=== PATIENT | male | born 1985 | race American Indian/Alaskan Native ===

== ENCOUNTER 2017-04-27 19:13 | Emergency (ER) | payer SELFPAY ==
--- NOTE | 2017-04-27 19:38 | C.PDOC ---
History Of Present Illness 31 yo male w/o significant PMHx come in for evaluation of pain on urination, urinary frequency, hesitancy developed for past 3 days, (+) chills. Pt admits, had similar sx in past ( 2 yrs ago) when was diagnosed with UTI. Otherwise, pt denies fever, headache, sore throat, neck pain, CP, SOB, dyspnea, abd. pain, N/V , back pain, hematuria, denies penile discharge, testicular swelling or pain, denies penile lesions. Ambulate to Ed for evaluation, not in any apparent distress. Time Seen by Provider: 04/27/17 19:24 Chief Complaint (Nursing): Male Genitourinary History Per: Patient Past Medical History Reviewed: Historical Data, Vital Signs Vital Signs: Last Vital Signs Temp 98.3 F 04/27/17 19:18 Pulse 82 04/27/17 19:18 Resp 16 04/27/17 19:18 BP 108/66 04/27/17 19:18 Pulse Ox 99 04/27/17 19:40 - Medical History PMH: No Chronic Diseases Surgical History: No Surg Hx Family History: States: No Known Family Hx - Social History Hx Tobacco Use: No Hx Alcohol Use: Yes Hx Substance Use: No - Immunization History Hx Tetanus Toxoid Vaccination: No Hx Influenza Vaccination: No Hx Pneumococcal Vaccination: No Review Of Systems Except As Marked, All Systems Reviewed And Found Negative. Constitutional: Positive for: Chills. Negative for: Fever Eyes: Negative for: Vision Change ENT: Negative for: Mouth Swelling, Throat Pain, Throat Swelling Cardiovascular: Negative for: Chest Pain Respiratory: Negative for: Cough, Shortness of Breath Gastrointestinal: Negative for: Nausea, Vomiting, Abdominal Pain, Diarrhea Genitourinary: Positive for: Dysuria, Frequency. Negative for: Incontinence, Hematuria, Penile Discharge, Scrotal Pain, Rash, Penile Pain Musculoskeletal: Negative for: Back Pain Skin: Negative for: Rash Neurological: Negative for: Weakness, Numbness, Altered Mental Status, Headache , Dizziness Physical Exam - Physical Exam Appears: Well, Non-toxic, No Acute Distress Skin: Normal Color, Warm, Dry, No Rash Eye(s): bilateral: PERRL Nose: No Flaring Oral Mucosa: Moist, No Drooling Tongue: Normal Appearing Lips: Normal Appearing Throat: No Erythema, No Exudate, No Drooling Neck: Supple Cardiovascular: Rhythm Regular Respiratory: No Decreased Breath Sounds, No Accessory Muscle Use, No Stridor, No Wheezing Gastrointestinal/Abdominal: Soft, Tenderness (mild suprapubic tenderness), No Distention, No Guarding Back: No CVA Tenderness Male Genital: Normal Inspection, No Testicular Tenderness, No Testicular Swelling, Other (performed by ) Extremity: No Pedal Edema Neurological/Psych: Oriented x3, Normal Speech ED Course And Treatment - Laboratory Results Result Diagrams: 04/27/17 20:34 04/27/17 20:34 Lab Interpretation: Normal O2 Sat by Pulse Oximetry: 99 Pulse Ox Interpretation: Normal - CT Scan/US CT abd/pelvis Other Rad Studies (CT/US): Radiology Report Reviewed CT/US Interpretation: No evidence for bowel herniation or obstruction, colitis, appendictis or diverticulitis. No ureteral stones or obstructive uropathy. Progress Note: On re-eval, pt is afebrile, hemodynamicaly stable. Non-toxic. ENT: no acute findings. Lungs: CTA B/L, BS equal B/L. Abd: benign, (-) guarding, (-) rebound, (-) localized tenderness, (-) RLQ tenderness. back: (-) CVAtenderness. Diagnostics and imaging review (-) acute abnormalities. results review and discussed with pt. Pt request STD prophy tx, admits, had recent unprotective sexual activity. Pt has clinical findings c/w dysuria, urethritis. Pt advised and ref. to f/u with PMD, urology in 2-3 days for re- eavl. reutrn if any new changes. Disposition Counseled Patient/Family Regarding: Studies Performed, Diagnosis, Need For Followup, Rx Given - Disposition Referrals: Brendon Irizarry MD [Staff Provider] - [facility] at [facility] [Outside] Disposition: HOME/ ROUTINE Disposition Time: 22:02 Condition: STABLE Additional Instructions: Follow up with PMD, Urology n 2-3 days for re-evaluation. Return to ED if any worsening or new changes Instructions: Dysuria (ED) - Clinical Impression Clinical Impression: Dysuria, Urethritis
[2017-04-27 19:43] LABS: URINE BILIRUBIN NEGATIVE (NEGATIVE); URINE BLOOD NEGATIVE (NEGATIVE); URINE CLARITY Clear (Clear); URINE COLOR Straw (YELLOW); URINE GLUCOSE (UA) NORMAL (Normal); URINE LEUKOCYTE ESTERASE NEG Leu/uL (Negative); URINE NITRATE NEGATIVE (NEGATIVE); URINE PROTEIN NEGATIVE (NEGATIVE); URINE UROBILINOGEN NORMAL mg/dL (0.2-1.0)
[2017-04-27 20:41] LABS: BASO % 0.9 % (0.0-2.0); EOS # 0.1 K/uL (0.0-0.7); EOS % 1.5 % (0.0-4.0); HEMOGLOBIN 13.6 g/dL (12.0-18.0); LYMPH # 2.2 K/uL (1.0-4.3); LYMPH % 41.6 % (20.0-40.0); MEAN CELL VOLUME 73.2 fL (80.0-94.0); MEAN CORPUSCULAR HEMOGLOBIN 23.4 pg (27.0-31.0); MEAN CORPUSCULAR HGB CONC 31.9 g/dL (33.0-37.0); MEAN PLATELET VOLUME 8.7 fL (7.2-11.7); MONO # 0.5 K/uL (0.0-0.8); MONO % 8.8 % (0.0-10.0); NEUT # 2.5 K/uL (1.8-7.0); NEUT % 47.2 % (50.0-75.0); NRBC % 0.1 % (0.0-2.0); RBC 5.83 Mil/uL (4.40-5.90); RED CELL DISTRIBUTION WIDTH 14.6 % (11.5-14.5); WHITE BLOOD COUNT 5.3 K/uL (4.8-10.8)
[2017-04-27 20:49] LABS: BLOOD UREA NITROGEN 12 mg/dL (9-20); GFR AFRICAN-AMERICAN > 60; GFR NON-AFRICAN AMERICAN > 60
[2017-04-27 20:50] LABS: CALCIUM 9.2 mg/dl (8.6-10.4)
[2017-04-27] MEDS ORDERED: Iohexol 300 100 ML IJ ONE (21:14)
[2017-04-27] MEDS ORDERED: cefTRIAXone (Rocephin) 250 mg Inj IM STA (22:03)
[2017-04-27 22:22] VITALS: BP 122/78; PULSE 100; RESP 20; TEMP 98; O2SAT 100
--- NOTE | 2017-04-28 07:44 | CT ---
PROCEDURE: CT Abdomen and Pelvis with contrast HISTORY: RLQ pain COMPARISON: None available TECHNIQUE: Contrast dose: 100 mL Omnipaque 300 Radiation dose: Total exam DLP = 357.39 mGy-cm. This CT exam was performed using one or more of the following dose reduction techniques: Automated exposure control, adjustment of the mA and/or kV according to patient size, and/or use of iterative reconstruction technique. FINDINGS: LOWER THORAX: No visible consolidation, pleural effusion, or pneumothorax. Small hiatal hernia. LIVER: Unremarkable. GALLBLADDER AND BILE DUCTS: Contracted gallbladder limits evaluation. PANCREAS: Unremarkable. SPLEEN: Two probable splenules. Otherwise unremarkable. ADRENALS: Unremarkable. KIDNEYS AND URETERS: The kidneys enhance symmetrically. No hydronephrosis or obstructing calculus identified. VASCULATURE: No aortic aneurysm. BOWEL: Stomach is nondistended. Lack of oral contrast limits evaluation for bowel pathology. Bowel loops appear within normal limits of caliber without evidence of obstruction. Mild constipation. APPENDIX: The presumed appendix appears within normal limits of caliber. No secondary signs of acute appendicitis. PERITONEUM: No significant free fluid. No definite free air. LYMPH NODES: No bulky adenopathy. BLADDER: Unremarkable. REPRODUCTIVE: The prostate gland measures approximately 3.9 x 4.5 cm. BONES: No acute osseous abnormality is detected. OTHER FINDINGS: None. IMPRESSION: Mild constipation. Additional findings above. Preliminary impression was provided by virtual radiologic.
== END 2017-04-27 22:46 | disposition home or self-care (01) ==
LOC: C.ER 19:13
DX: N34.2 Other urethritis (principal)
CPT/HCPCS: 74177; 80048; 81001; 82948; 85025; 96372; 99285; J0696; Q9967

== ENCOUNTER 2017-07-07 18:36 | Emergency (ER) | payer OTHER ==
[2017-07-07 19:02] VITALS: O2SAT 100
--- NOTE | 2017-07-07 20:04 | C.PDOC ---
History Of Present Illness pt presents with burning sensation while voiding and questionable discharge. Pt states he had unprotected intercourse Time Seen by Provider: 07/07/17 20:03 Chief Complaint (Nursing): Male Genitourinary History Per: Patient Onset/Duration Of Symptoms: Days Current Symptoms Are (Timing): Still Present Severity: Moderate Pain Scale Rating Of: 3 Quality Of Discomfort: Burning Associated Symptoms: denies: Fever, Chills, Nausea, Vomiting Alleviating Factors: None Recent travel outside of the [place]: No Additional History Per: Patient Past Medical History Reviewed: Historical Data, Nursing Documentation, Vital Signs Vital Signs: Last Vital Signs Temp 98.2 F 07/07/17 18:58 Pulse 75 07/07/17 18:58 Resp 16 07/07/17 18:58 BP 117/70 07/07/17 18:58 Pulse Ox 100 07/07/17 20:04 Family History: States: No Known Family Hx - Social History Hx Tobacco Use: No Hx Alcohol Use: Yes Hx Substance Use: No - Immunization History Hx Tetanus Toxoid Vaccination: No Hx Influenza Vaccination: No Hx Pneumococcal Vaccination: No Review Of Systems Constitutional: Negative for: Fever, Chills Genitourinary: Positive for: Dysuria, Penile Discharge. Negative for: Penile Pain Skin: Negative for: Rash, Lesions Neurological: Negative for: Weakness Psych: Negative for: Anxiety Physical Exam - Physical Exam Appears: Non-toxic, No Acute Distress Skin: Warm, Diaphoretic Male Genital: No Testicular Tenderness, No Testicular Swelling, No Inguinal Tenderness, No Inguinal Swelling, No Scrotal Swelling Extremity: Bilateral: Atraumatic Neurological/Psych: Oriented x3 Gait: Steady ED Course And Treatment O2 Sat by Pulse Oximetry: 100 Pulse Ox Interpretation: Normal Disposition Counseled Patient/Family Regarding: Studies Performed, Diagnosis, Need For Followup - Disposition Referrals: [facility] [Outside] [facility] [Outside] Disposition: HOME/ ROUTINE Disposition Time: 20:04 Condition: FAIR Instructions: Sexually Transmitted Diseases (ED), Condom Use (ED) Forms: [facility] (Uzbek) - Clinical Impression Clinical Impression: Urethritis, STD (male)
[2017-07-07] MEDS ORDERED: cefTRIAXone (Rocephin) 250 mg Inj IM STA (20:16)
[2017-07-07 21:03] VITALS: BP 134/80; PULSE 62; RESP 18; TEMP 98.3
== END 2017-07-07 21:15 | disposition home or self-care (01) ==
LOC: C.ER 18:36
DX: N34.2 Other urethritis (principal); A64 Unspecified sexually transmitted disease
CPT/HCPCS: 96372; 99285; J0696

== ENCOUNTER 2017-07-16 15:49 | Emergency (ER) | payer MEDICAID, OTHER ==
[2017-07-16 15:54] VITALS: BMI 25.5
[2017-07-16 15:55] VITALS: RESP 18; O2SAT 99
[2017-07-16 17:21] LABS: RBC URINE 1 /hpf (0-3); URINE BILIRUBIN NEGATIVE (NEGATIVE); URINE BLOOD NEGATIVE (NEGATIVE); URINE COLOR Yellow (YELLOW); URINE GLUCOSE (UA) NORMAL (Normal); URINE KETONE NEGATIVE (NEGATIVE); URINE LEUKOCYTE ESTERASE NEG Leu/uL (Negative); URINE PROTEIN NEGATIVE (NEGATIVE)
--- NOTE | 2017-07-16 17:43 | C.PDOC ---
History Of Present Illness 31 yo male c/o dysuria and suprapubic pressure for two weeks. PT notes he has had these symptoms intermittently for many years. Notes he was evaluated by urology years ago and "every thing was fine." He was evaluated by [facility] two weeks ago when symptoms started, treated with Rocephin and ZIthromax but the symptoms persist. Pt notes he had unprotected intercourse before these symptoms started but has not had intercourse since. No penile discharge, abdominal pain, n/v, testicular pain, or fever. Time Seen by Provider: 07/16/17 16:10 Chief Complaint (Nursing): Abdominal Pain History Per: Patient History/Exam Limitations: no limitations Onset/Duration Of Symptoms: Days Current Symptoms Are (Timing): Still Present Past Medical History Vital Signs: Last Vital Signs Temp 98.1 F 07/16/17 17:51 Pulse 74 07/16/17 17:51 Resp 18 07/16/17 15:54 BP 118/74 07/16/17 17:51 Pulse Ox 99 07/16/17 17:51 Family History: States: Unknown Family Hx - Social History Hx Tobacco Use: No Hx Alcohol Use: Yes Hx Substance Use: No - Immunization History Hx Tetanus Toxoid Vaccination: (unk) Hx Influenza Vaccination: No Hx Pneumococcal Vaccination: (unk) Review Of Systems Except As Marked, All Systems Reviewed And Found Negative. Constitutional: Negative for: Fever Genitourinary: Positive for: Dysuria. Negative for: Frequency, Penile Discharge , Scrotal Pain Physical Exam - Physical Exam Appears: Well, Non-toxic, No Acute Distress Skin: Normal Color, Warm, Dry Head: Atraumatic, Normacephalic Eye(s): bilateral: Normal Inspection, EOMI Nose: Normal Oral Mucosa: Moist Neck: Normal, Normal ROM, Supple Chest: Symmetrical Cardiovascular: Rhythm Regular Respiratory: Normal Breath Sounds Gastrointestinal/Abdominal: Normal Exam, Soft, No Tenderness Back: Normal Inspection Male Genital: Normal Inspection, No Testicular Tenderness, No Testicular Swelling, No Scrotal Swelling, Circumcised Extremity: Normal ROM Extremity: Bilateral: Atraumatic Neurological/Psych: Oriented x3, Normal Speech ED Course And Treatment O2 Sat by Pulse Oximetry: 99 Progress Note: Cultures ordered. Pt was instructed to followup with urology in 1-2 days. Case discussed with Dr Guadalupe, agreed upon plan and discharge. Disposition - Disposition Referrals: Niels Thomason MD [Staff Provider] - Disposition: HOME/ ROUTINE Disposition Time: 17:40 Condition: STABLE Additional Instructions: Follow up with the clinic in 2-5 days for further evaluation. Take medications as prescribed. Return to the emergency department at any time if symptoms persist or worsen. You may call critical access hospital service for any assistance [phone]. Prescriptions: Doxycycline Hyclate [Doryx] 100 mg PO BID #14 cap Instructions: Dysuria (ED) Forms: [employer] (Bulgarian) - Clinical Impression Clinical Impression: Urethritis, Dysuria
[2017-07-16 17:53] VITALS: BP 118/74; PULSE 74; TEMP 98.1
== END 2017-07-16 17:55 | disposition home or self-care (01) ==
LOC: C.ER 15:49
DX: N34.2 Other urethritis (principal); R30.0 Dysuria

== ENCOUNTER 2017-11-09 09:31 | Emergency (ER) | payer OTHER ==
[2017-11-09 09:51] VITALS: RESP 18; TEMP 98.4; O2SAT 99; BMI 26.3
--- NOTE | 2017-11-09 10:29 | RAD ---
PROCEDURE: Left Ankle Radiographs. HISTORY: left ankle pain COMPARISON: None FINDINGS: BONES: Probable healing oblique distal fibular fracture above the level of the plafond. No gross callus. No soft tissue swelling. No other fracture identified. JOINTS: Normal. No osteoarthritis. Ankle mortise maintained. Talar dome intact SOFT TISSUES: Normal. OTHER FINDINGS: None. IMPRESSION: Suspect healing fracture distal fibula. No soft tissue swelling to suggest acute fracture. Correlate clinically.
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
[2017-11-09 11:44] VITALS: BP 125/81; PULSE 69
== END 2017-11-09 11:43 | disposition home or self-care (01) ==
LOC: C.ER 09:31
DX: S82.832A Other fracture of upper and lower end of left fibula, initial encounter for closed fracture (principal); W19.XXXA Unspecified fall, initial encounter
CPT/HCPCS: 73610; 97116; 97161; 99285; G8978; G8979; G8980

== ENCOUNTER 2017-12-30 15:36 | Emergency (ER) | payer OTHER ==
[2017-12-30 15:36] VITALS: BMI 26.3
[2017-12-30 15:46] VITALS: O2SAT 100
[2017-12-30] MEDS ORDERED: Sodium Chloride 0.9% 1,000 ML IV ONE (16:05)
--- NOTE | 2017-12-30 16:10 | C.PDOC ---
History Of Present Illness 32 year old male presents to the ED complaining of left-sided abdominal pain and urinary frequency, intermittent for the past 2 weeks. Symptoms associated with nausea and diarrhea. No vomiting, fever, or chills. Denies any penile discharge or testicular pain. Patient has had the same problem intermittently with self resolution. He never followed up with a urologist due to insurance problems. Time Seen by Provider: 12/30/17 15:54 Chief Complaint (Nursing): Abdominal Pain History Per: Patient History/Exam Limitations: no limitations Onset/Duration Of Symptoms: Days (x 2 weeks) Current Symptoms Are (Timing): Still Present Associated Symptoms: Nausea, Diarrhea Past Medical History Reviewed: Historical Data, Nursing Documentation, Vital Signs Vital Signs: Last Vital Signs Temp 98 F 12/30/17 19:51 Pulse 62 12/30/17 19:51 Resp 20 12/30/17 19:51 BP 112/75 12/30/17 19:51 Pulse Ox 100 12/30/17 19:54 - Medical History PMH: No Chronic Diseases Surgical History: No Surg Hx Family History: States: Unknown Family Hx - Social History Hx Tobacco Use: No Hx Alcohol Use: Yes Hx Substance Use: No - Immunization History Hx Tetanus Toxoid Vaccination: (unk) Hx Influenza Vaccination: No Hx Pneumococcal Vaccination: (unk) Review Of Systems Except As Marked, All Systems Reviewed And Found Negative. Constitutional: Negative for: Fever, Chills Gastrointestinal: Positive for: Nausea, Abdominal Pain, Diarrhea. Negative for : Vomiting, Constipation Genitourinary: Positive for: Frequency. Negative for: Penile Discharge, Scrotal Pain, Rash Physical Exam - Physical Exam Appears: Well, Non-toxic, No Acute Distress Skin: Normal Color, Warm, Dry Head: Atraumatic, Normacephalic Eye(s): bilateral: Normal Inspection, EOMI Nose: Normal Oral Mucosa: Moist Neck: Normal ROM, Supple Chest: Symmetrical Cardiovascular: Rhythm Regular Respiratory: Normal Breath Sounds, No Accessory Muscle Use, Other (speaking in full sentences) Gastrointestinal/Abdominal: Soft, Tenderness (LLQ), No Guarding, No Rebound Back: Normal Inspection, No CVA Tenderness Extremity: Normal ROM Neurological/Psych: Oriented x3, Normal Speech, No Other (focal deficits) ED Course And Treatment - Laboratory Results Result Diagrams: 12/30/17 16:28 03/21/18 16:28 O2 Sat by Pulse Oximetry: 100 (RA) Pulse Ox Interpretation: Normal Progress Note: Ordered blood work and urinalysis. Patient started on IV fluids, Pepcid, and Toradol. On reevaluation pain persists. Will order CT abdomen/ pelvis. On re-evaluation, patient is resting comfortably, abdomen remains soft , and patient is tolerating PO. Afebrile. Instructed strict f/u with urologist and PMD in 1-2 days. Disposition - Disposition Referrals: Niels Thomason MD [Staff Provider] - [facility] [Outside] Disposition: HOME/ ROUTINE Disposition Time: 19:50 Condition: STABLE Additional Instructions: Follow up with your PMD and urologist in 1-2 days. Return to ER if symptoms persist or worsen. Instructions: Acute Abdomen (Belly Pain), Adult (DC) Forms: [email or web address] (Yi) - Clinical Impression Clinical Impression: Abdominal pain - PA / REVENUE ACCOUNTING MANAGER / Resident Statement MD/DO has reviewed & agrees with the documentation as recorded. - Scribe Statement The provider has reviewed the documentation as recorded by the Scribe (Henny Marvin) All medical record entries made by the Scribe were at my direction and personally dictated by me. I have reviewed the chart and agree that the record accurately reflects my personal performance of the history, physical exam, medical decision making, and the department course for this patient. I have also personally directed, reviewed, and agree with the discharge instructions and disposition.
[2017-12-30] MEDS ORDERED: Sodium Chloride 0.9% 1,000 ML ONE (16:21)
[2017-12-30 16:34] LABS: EOS # 0.1 K/uL (0.0-0.7); EOS % 2.8 % (0.0-4.0); HEMOGLOBIN 13.9 g/dL (12.0-18.0); LYMPH # 1.9 K/uL (1.0-4.3); LYMPH % 42.6 % (20.0-40.0); MEAN CORPUSCULAR HEMOGLOBIN 23.3 pg (27.0-31.0); MEAN CORPUSCULAR HGB CONC 31.8 g/dL (33.0-37.0); MEAN PLATELET VOLUME 9.6 fL (7.2-11.7); MONO # 0.4 K/uL (0.0-0.8); MONO % 8.6 % (0.0-10.0); RBC 5.99 Mil/uL (4.40-5.90); RED CELL DISTRIBUTION WIDTH 14.9 % (11.5-14.5); WHITE BLOOD COUNT 4.5 K/uL (4.8-10.8)
[2017-12-30 16:43] LABS: URINE BILIRUBIN NEGATIVE (NEGATIVE); URINE BLOOD NEGATIVE (NEGATIVE); URINE CLARITY Clear (Clear); URINE COLOR Yellow (YELLOW); URINE GLUCOSE (UA) NORMAL (Normal); URINE LEUKOCYTE ESTERASE NEG Leu/uL (Negative); URINE PROTEIN NEGATIVE (NEGATIVE); URINE UROBILINOGEN NORMAL mg/dL (0.2-1.0)
[2017-12-30 16:52] LABS: ALB/GLOB RATIO 1.1 (1.0-2.1); ALBUMIN 4.4 g/dL (3.5-5.0); ALT/SGPT 30 U/L (21-72); AST/SGOT 34 U/L (17-59); BLOOD UREA NITROGEN 15 mg/dL (9-20); GFR AFRICAN-AMERICAN > 60; GFR NON-AFRICAN AMERICAN > 60; LIPASE 122 U/L (23-300)
[2017-12-30] MEDS ORDERED: Iodixanol 320 MG/ML 100 ML BOTTLE IV ONE (17:38)
--- NOTE | 2017-12-30 17:45 | RAD ---
PROCEDURE: Radiographs of the chest and abdomen (obstructive series) HISTORY: pain COMPARISON: No prior. TECHNIQUE: AP radiograph of the chest, with upright and supine radiographs of the abdomen. FINDINGS: CHEST: Lungs: Clear. Cardiovascular: Normal size heart. No pulmonary vascular congestion. Pleura: No pleural fluid. No pneumothorax. Other findings: None. ABDOMEN AND PELVIS: Bowel: Unremarkable bowel gas pattern. No evidence of mechanical obstruction. Free air: None. Bones: Unremarkable. Other findings: None. IMPRESSION: Unremarkable radiographs of chest and abdomen. No evidence of mechanical bowel obstruction.
--- NOTE | 2017-12-30 19:48 | CT ---
EXAM: CT Abdomen and Pelvis With Intravenous Contrast EXAM DATE/TIME: Exam ordered 12/30/2017 5:30 PM CLINICAL HISTORY: 32 years old, male; Pain; Abdominal pain; Other: Abd pain TECHNIQUE: Axial computed tomography images of the abdomen and pelvis with intravenous contrast. All CT scans at this facility use one or more dose reduction techniques, viz.: automated exposure control; ma/kV adjustment per patient size (including targeted exams where dose is matched to indication; i.e. head); or iterative reconstruction technique. Coronal and sagittal reformatted images were created and reviewed. CONTRAST: 100 mL of visipaque administered intravenously. COMPARISON: CT - ABD PELVIS IV CONTRAST ONLY 2017-04-27 21:28 FINDINGS: Lower thorax: No acute findings. ABDOMEN: Liver: Unremarkable. No mass. Gallbladder and bile ducts: Unremarkable. No calcified stones. No ductal dilation. Pancreas: Unremarkable. No mass. No ductal dilation. Spleen: An 8mm accessory spleen is noted lateral to the inferior splenic margin. Adrenals: Unremarkable. No mass. Kidneys and ureters: A 9 mm cyst is seen in the upper pole the left kidney Stomach and bowel: Unremarkable. No obstruction. No mucosal thickening. Appendix: No findings to suggest acute appendicitis. PELVIS: Bladder: Unremarkable. No mass. Reproductive: Unremarkable as visualized. ABDOMEN and PELVIS: Intraperitoneal space: Unremarkable. No free air. No significant fluid collection. Bones/joints: No acute fracture. No dislocation. Soft tissues: Unremarkable. Vasculature: There are 2 renal arteries serving each kidney. No abdominal aortic aneurysm. Lymph nodes: Unremarkable. No enlarged lymph nodes. IMPRESSION: 1. No acute findings. 2. Left renal cyst. 3. The hiatal hernia noted on the previous study is not apparent on this exam
[2017-12-30 19:51] VITALS: BP 112/75; PULSE 62; RESP 20; TEMP 98
== END 2017-12-30 19:59 | disposition home or self-care (01) ==
LOC: C.ER 15:36
DX: R10.32 Left lower quadrant pain (principal)
CPT/HCPCS: 74022; 74177; 80053; 81001; 83690; 85025; 87086; 87491; 87591; 96361; 96374; 96375; 99285; J1885; J7040; Q9967

== ENCOUNTER 2018-03-13 20:28 | Emergency (ER) | payer MEDICAID, OTHER ==
[2018-03-13 20:29] VITALS: BMI 26.3
[2018-03-13 20:38] VITALS: BP 126/81; PULSE 71; TEMP 98.5; O2SAT 99
--- NOTE | 2018-03-13 21:01 | C.PDOC ---
History Of Present Illness 32-year-old male, PMHx includes Migraine, comes in for evaluation of intermittent headache for the past year. Patient describes headache as intermittent B/L temporal, aching, "worsen by light, voice". Patient states that since this morning, the headache worsened, " I tried to sleep it off today and it improved by now". At present time, pain is mild and pt request wok note. Pt admits, similar headache in past and c/w migraine exacerbation. Otherwise , pt denies fever, chills, recent illness, denies worse headache of life, visual changes, focal deficits, nausea/vomiting, neck pain, CP, SOB, dyspnea, abd. pain, UTI sx, No other complaints at this time. Ambulate to Ed for evaluation, not in any apparent distress. Time Seen by Provider: 03/13/18 20:45 Chief Complaint (Nursing): Headache History Per: Patient History/Exam Limitations: no limitations Onset/Duration Of Symptoms: Hrs Current Symptoms Are (Timing): Still Present Severity: Mild Preceeding Symptoms: Known Migraine Symptoms Recent travel outside of the [facility]: No Past Medical History Reviewed: Historical Data, Nursing Documentation, Vital Signs Vital Signs: Last Vital Signs Temp 98.5 F 03/13/18 20:32 Pulse 71 03/13/18 20:32 Resp 20 03/13/18 21:36 BP 126/81 03/13/18 20:32 Pulse Ox 99 03/13/18 21:10 Family History: States: No Known Family Hx - Social History Hx Tobacco Use: No Hx Alcohol Use: Yes Hx Substance Use: No - Immunization History Hx Tetanus Toxoid Vaccination: (unk) Hx Influenza Vaccination: No Hx Pneumococcal Vaccination: (unk) Review Of Systems Constitutional: Negative for: Fever, Chills Eyes: Negative for: Vision Change Gastrointestinal: Negative for: Nausea, Vomiting Musculoskeletal: Negative for: Neck Pain, Back Pain Neurological: Positive for: Headache. Negative for: Weakness, Numbness, Incoordination, Dizziness Physical Exam - Physical Exam Appears: Well, Non-toxic, No Acute Distress Skin: Normal Color, Warm, Dry, No Rash Head: Normacephalic Eye(s): bilateral: PERRL Ear(s): Bilateral: Normal Nose: No Flaring, No Discharge Oral Mucosa: Moist, No Drooling Lips: Normal Appearing Throat: No Erythema, No Exudate, No Drooling Neck: Normal ROM, Trachea Midline, No Midline Cervical Tenderness, No Paracervical Tenderness, No Step Off Deformity, Supple Chest: Symmetrical Cardiovascular: Rhythm Regular, No Murmur Respiratory: No Accessory Muscle Use, No Stridor, No Wheezing Gastrointestinal/Abdominal: Soft, No Tenderness, No Distention, No Guarding Back: No CVA Tenderness, No Vertebral Tenderness Extremity: Normal ROM, No Pedal Edema, No Deformity, No Swelling Neurological/Psych: Oriented x3, Normal Speech, Normal Motor, Normal Sensation, Normal Reflexes ED Course And Treatment O2 Sat by Pulse Oximetry: 99 Pulse Ox Interpretation: Normal Progress Note: On re-evaluation, pt is afebrile, hemodynamicaly stable. Non- toxic. PuslEOx 100% RA. Head: AT/NC. Neck: Supple, (-) JVD, (-) carotid bruits B/L. ENT: no acute findings. Lungs: CTA B/L, BS equal B/L. ABd: benign. Neurologicaly intact. Pt has clinical findings c/w chronic headache, acute exacerbation, resolved now. pt advised. ref. to f/u with PMD, Neuro in2 -3 days for re-eval. return to ED if any worsening or new changes. Disposition Counseled Patient/Family Regarding: Diagnosis, Need For Followup, Rx Given - Disposition Referrals: [facility] [Outside] Disposition: HOME/ ROUTINE Disposition Time: 21:00 Condition: STABLE Prescriptions: Acetaminophen/Butalbital/Caf [Fioricet] 1 tab PO TID PRN #14 tab PRN Reason: Headache Instructions: Tension Headache Forms: [employer] (Uzbek), Work Excuse - Clinical Impression Clinical Impression: Tension headache - Scribe Statement The provider has reviewed the documentation as recorded by the Scribe (Myles Tomlinson) All medical record entries made by the Scribe were at my direction and personally dictated by me. I have reviewed the chart and agree that the record accurately reflects my personal performance of the history, physical exam, medical decision making, and the department course for this patient. I have also personally directed, reviewed, and agree with the discharge instructions and disposition.
[2018-03-13 21:43] VITALS: RESP 20
== END 2018-03-13 21:36 | disposition home or self-care (01) ==
LOC: C.ER 20:28
DX: G44.209 Tension-type headache, unspecified, not intractable (principal)

== ENCOUNTER 2018-05-15 17:30 | Emergency (ER) | payer OTHER ==
[2018-05-15 17:31] VITALS: BMI 26.3
[2018-05-15 18:00] VITALS: BP 113/68; PULSE 78; RESP 18; TEMP 98.5; O2SAT 98
--- NOTE | 2018-05-15 18:03 | C.PDOC ---
History Of Present Illness 32 year old male presents to the emergency department with complaints of an itchy rash persisting for two weeks. Patient reports that the rash began on his arms and then spread all over his body. He reports that he went to a clinic where he was given a prescription for Benadryl, Zantac, and Prednisone, which he took with no relief. He reports that he recently had a friend visit him from [place] who had a similar rash with itching. He states that his itching worsens at night. Time Seen by Provider: 05/15/18 17:47 Chief Complaint (Nursing): Abnormal Skin Integrity History Per: Patient History/Exam Limitations: no limitations Onset/Duration Of Symptoms: Other (two weeks) Current Symptoms Are (Timing): Worse Quality Of Symptoms: Itching (+) Past Medical History Reviewed: Historical Data, Nursing Documentation, Vital Signs Vital Signs: Last Vital Signs Temp 98.5 F 05/15/18 17:55 Pulse 78 05/15/18 17:55 Resp 18 05/15/18 17:55 BP 113/68 05/15/18 17:55 Pulse Ox 98 05/15/18 18:22 - Medical History PMH: No Chronic Diseases Surgical History: No Surg Hx Family History: States: No Known Family Hx - Social History Hx Tobacco Use: No Hx Alcohol Use: Yes Hx Substance Use: No - Immunization History Hx Tetanus Toxoid Vaccination: (unk) Hx Influenza Vaccination: No Hx Pneumococcal Vaccination: (unk) Review Of Systems Respiratory: Negative for: Shortness of Breath Skin: Positive for: Rash (diffuse), Other (itching) Physical Exam - Physical Exam Appears: Non-toxic, No Acute Distress Skin: Warm, Dry, Rash (fine papular rash diffusely, including the interdigits of the hands) Head: Atraumatic, Normacephalic Eye(s): bilateral: Normal Inspection Neck: Normal, Supple Chest: Symmetrical, No Tenderness Cardiovascular: Rhythm Regular, No Murmur Respiratory: Normal Breath Sounds, No Rales, No Rhonchi, No Wheezing Extremity: Bilateral: Atraumatic, Normal ROM Neurological/Psych: Oriented x3, Normal Speech ED Course And Treatment O2 Sat by Pulse Oximetry: 98 (RA) Pulse Ox Interpretation: Normal Disposition Counseled Patient/Family Regarding: Diagnosis, Need For Followup, Rx Given - Disposition Referrals: María Corral MD [Staff Provider] - Disposition: HOME/ ROUTINE Disposition Time: 18:02 Condition: GOOD Additional Instructions: Apply generous amount of cream from head to feet, leave it on for 8 to 14 hours , then wash with soap and water. This may be repeated in 7 or 14 days if necessary Prescriptions: Permethrin 5% [Permethrin 5% Cream] 60 gm EXT ONCE #1 tube Instructions: Scabies (DC) Forms: [employer] (Maltese) - POA Present On Arrival: None - Clinical Impression Clinical Impression: Scabies - PA / GLOBAL COORDINATOR / Resident Statement MD/DO has reviewed & agrees with the documentation as recorded. - Scribe Statement The provider has reviewed the documentation as recorded by the Scribe (Jt Andre) All medical record entries made by the Scribe were at my direction and personally dictated by me. I have reviewed the chart and agree that the record accurately reflects my personal performance of the history, physical exam, medical decision making, and the department course for this patient. I have also personally directed, reviewed, and agree with the discharge instructions and disposition.
== END 2018-05-15 18:16 | disposition home or self-care (01) ==
LOC: C.ER 17:30
DX: B86 Scabies (principal)

== ENCOUNTER 2018-10-17 09:22 | Emergency (ER) | payer OTHER ==
[2018-10-17 09:23] VITALS: BMI 26.3
[2018-10-17 09:30] VITALS: BP 127/71; PULSE 76; RESP 18; TEMP 97.7; O2SAT 99
[2018-10-17] MEDS ORDERED: cefTRIAXone (Rocephin) 250 mg Inj IM STA (09:52)
--- NOTE | 2018-10-17 09:57 | C.PDOC ---
History Of Present Illness 33 yo male, hx of previous std, presents for eval. reports 3 weeks of symptoms of dyuria/painful ejaculation h/o of unprotected sex. no fever, subjective chills and nausea. in er in nad on phone. no abd pain. no lesions Time Seen by Provider: 10/17/18 09:33 Chief Complaint (Nursing): Male Genitourinary Past Medical History Reviewed: Historical Data, Nursing Documentation, Vital Signs Vital Signs: Last Vital Signs Temp 97.7 F 10/17/18 09:27 Pulse 76 10/17/18 09:27 Resp 18 10/17/18 09:27 BP 127/71 10/17/18 09:27 Pulse Ox 99 10/17/18 09:27 Family History: States: Unknown Family Hx - Social History Hx Tobacco Use: No Hx Alcohol Use: Yes Hx Substance Use: Yes - Immunization History Hx Tetanus Toxoid Vaccination: No (unk) Hx Influenza Vaccination: No Hx Pneumococcal Vaccination: No (unk) Review Of Systems Except As Marked, All Systems Reviewed And Found Negative. Genitourinary: Positive for: Dysuria, Other (painful ejaculation) Physical Exam - Physical Exam Appears: Well, No Acute Distress Skin: Normal Color, Warm, Dry Eye(s): bilateral: Normal Inspection, PERRL, EOMI Nose: Normal Throat: Normal Neck: Normal Cardiovascular: Rhythm Regular Respiratory: Normal Breath Sounds Gastrointestinal/Abdominal: Normal Exam, Soft, No Tenderness, No Guarding, No Rebound Back: Normal Inspection Male Genital: Normal Inspection, No Testicular Tenderness, No Testicular Swelling, No Inguinal Tenderness, No Inguinal Swelling, No Scrotal Swelling Extremity: Normal ROM ED Course And Treatment O2 Sat by Pulse Oximetry: 99 Medical Decision Making Medical Decision Making: declines testing of std, specifially requests tx. ua pending Disposition - Disposition Referrals: Jessenia Irizarry MD [Staff Provider] - Disposition: HOME/ ROUTINE Disposition Time: 10:00 Condition: STABLE Additional Instructions: follow with specailsit. return to er with worsening. Instructions: Urethritis, Dysuria, Adult (DC), Screening for Sexually Transmitted Infections Forms: [employer] (Vietnamese) - Clinical Impression Clinical Impression: Dysuria
[2018-10-17 10:35] LABS: URINE BILIRUBIN NEGATIVE (NEGATIVE); URINE BLOOD NEGATIVE (NEGATIVE); URINE CLARITY Clear (Clear); URINE COLOR Yellow (YELLOW); URINE GLUCOSE (UA) NORMAL (Normal); URINE LEUKOCYTE ESTERASE NEG Leu/uL (Negative); URINE PROTEIN 1+ mg/dL (NEGATIVE)
== END 2018-10-17 11:15 | disposition home or self-care (01) ==
LOC: C.ER 09:22
DX: R30.0 Dysuria (principal)
CPT/HCPCS: 81001; 96372; 99283; J0696

== ENCOUNTER 2019-01-27 17:10 | Emergency (ER) | payer OTHER ==
[2019-01-27 17:18] VITALS: BMI 25.3
[2019-01-27] MEDS ORDERED: Sodium Chloride 0.9% 1,000 ML IV STA (17:50)
--- NOTE | 2019-01-27 18:15 | C.PDOC ---
History Of Present Illness 33 year old male presents to ED with complaint of intermittent headache, nausea, diarrhea, abdominal cramps, sweating, and tiredness for more than 1 month. Patient states that about 2 weeks ago at his workplace he was complaining about his symptoms and had blood work done. The blood work showed elevated arsenic levels (unknown level). Patient was told to come to the ED. He denies fever, chills, runny nose, and cough. Time Seen by Provider: 01/27/19 17:41 Chief Complaint (Nursing): Abnormal Labs History Per: Patient History/Exam Limitations: no limitations Onset/Duration Of Symptoms: Other (1 month) Current Symptoms Are (Timing): Still Present Past Medical History Reviewed: Historical Data, Nursing Documentation, Vital Signs Vital Signs: Last Vital Signs Temp 98.7 F 01/27/19 17:16 Pulse 73 01/27/19 17:16 Resp 18 01/27/19 17:16 BP 115/75 01/27/19 17:16 Pulse Ox 100 01/27/19 17:16 - Medical History PMH: No Chronic Diseases Surgical History: No Surg Hx Family History: States: Unknown Family Hx - Social History Hx Tobacco Use: No Hx Alcohol Use: Yes Hx Substance Use: Yes - Immunization History Hx Tetanus Toxoid Vaccination: No (unk) Hx Influenza Vaccination: No Hx Pneumococcal Vaccination: No (unk) Review Of Systems Constitutional: Positive for: Sweats, Other (tiredness). Negative for: Fever, Chills ENT: Negative for: Nose Discharge, Nose Congestion Respiratory: Negative for: Cough Gastrointestinal: Positive for: Nausea, Abdominal Pain, Diarrhea Neurological: Positive for: Headache Physical Exam - Physical Exam Appears: Non-toxic, No Acute Distress Skin: Normal Color, Warm, Dry Head: Atraumatic, Normacephalic Neck: Normal ROM, Supple Chest: Symmetrical, No Deformity Cardiovascular: Rhythm Regular, No Murmur Respiratory: No Accessory Muscle Use, No Rales, No Rhonchi, No Wheezing Gastrointestinal/Abdominal: Soft, No Tenderness Extremity: Capillary Refill (<2 seconds) Neurological/Psych: Oriented x3, Normal Speech, Normal Cognition ED Course And Treatment - Laboratory Results Result Diagrams: 01/27/19 18:20 01/27/19 18:20 ECG Rhythm: Sinus Rhythm ECG Interpretation: No Acute Changes Rate From EC O2 Sat by Pulse Oximetry: 100 (in RA) - Radiology CXR: Interpreted by Me CXR Interpretation: Yes: No Acute Disease (0) - Other Rad CXR X-Ray: Interpreted by Me, Viewed By Me Interpretation: Accession No. : [id number]. Patient Name / ID : JOSE JUAN DIALLO / [id number]. Exam Date : 01/27/2019 18:03:28 ( Approved ). Study Comment : Sex / Age : M / 33Y. Creator : Camryn Lutz MD. Dictator : Camryn Lutz MD. Record Label Internship : Official Court Reporter : Camryn Lutz MD. Approver2 : Report Date : 01/27/2019 18:31:42. My Comment : . This report is currently processing and HAS NOT BEEN OFFICIALLY SIGNED BY THE PHYSICIAN - ESTIMATED TIME OF APPROVAL IS 01/27/2019 18:36. HISTORY: weakness. COMPARISON: Chest x-ray portion of obstructive series performed 12/30/17. TECHNIQUE: Chest, one view. FINDINGS: LUNGS: No focal consolidation. Please note that chest x-ray has limited sensitivity for the detection of pulmonary masses. PLEURA: No significant pleural effusion identified. No definite pneumothorax . CARDIOVASCULAR: The cardiomediastinal silhouette appears within normal limits of size. No significant atherosclerotic calcification present. OSSEOUS STRUCTURES: No acute osseous abnormality identi fied. VISUALIZED UPPER ABDOMEN: Unremarkable. OTHER FINDINGS: None. IMPRESSION: No acute findings identified. Progress Note: EKG and CXR ordered for patient. Labs ordered with cardiac enzymes, arsenic levels, and heavy metal panel. Patient given IV fluids. Spoke with Poison control (Priya) said that she knows of patient and that he was seen at [facility] yesterday. Recommended 24 hour urine for arsenic and before he starts he has to be off seafood for 1 week. Spoke with patient and he states didn't say he had been seen at [facility] b/c he wanted a second opinion. [facility] given him a special container for 24 H urine and told him to follow instructions and follow up with his PMD. If arsenic levels are high he will be contacted. No immediate treatment is needed at this point. Patient is recommended to drink plenty of fluids and to return to ED if feel worse. Disposition - Disposition Disposition: HOME/ ROUTINE Disposition Time: 19:22 Condition: STABLE Additional Instructions: Follow up with PMD/clinic. Do 24 H urine and bring it to laboratory as previously instructed. We will contact you if send off blood test come back abnormal. Return to ED immediately if feel worse. Forms: [employer] (Hungarian) - Clinical Impression Clinical Impression: Abnormal laboratory test result, Contact with arsenic - PA / IMMIGRATION ASSOCIATE / Resident Statement / has reviewed & agrees with the documentation as recorded. (Ivory Hoffman) - Scribe Statement The provider has reviewed the documentation as recorded by the Scribe (Ivory Hoffman) All medical record entries made by the Scribe were at my direction and personally dictated by me. I have reviewed the chart and agree that the record accurately reflects my personal performance of the history, physical exam, medical decision making, and the department course for this patient. I have also personally directed, reviewed, and agree with the discharge instructions and disposition.
[2019-01-27 18:23] LABS: EOS # 0.1 K/uL (0.0-0.7); EOS % 2.7 % (0.0-4.0); HEMOGLOBIN 12.8 g/dL (12.0-18.0); LYMPH # 1.7 K/uL (1.0-4.3); MEAN CORPUSCULAR HEMOGLOBIN 22.9 pg (27.0-31.0); MEAN CORPUSCULAR HGB CONC 30.9 g/dL (33.0-37.0); MEAN PLATELET VOLUME 8.6 fL (7.2-11.7); MONO # 0.4 K/uL (0.0-0.8); MONO % 10.7 % (0.0-10.0); NEUT # 1.7 K/uL (1.8-7.0); NEUT % 42.6 % (50.0-75.0); NRBC % 0.1 % (0.0-2.0); RBC 5.58 Mil/uL (4.40-5.90); RED CELL DISTRIBUTION WIDTH 15.1 % (11.5-14.5)
[2019-01-27 18:35] LABS: INR 1.2
[2019-01-27] MEDS ORDERED: Sodium Chloride 0.9% 1,000 ML ONE (18:35)
--- NOTE | 2019-01-27 18:35 | RAD ---
HISTORY: weakness COMPARISON: Chest x-ray portion of obstructive series performed 12/30/17 TECHNIQUE: Chest, one view. FINDINGS: LUNGS: No focal consolidation. Please note that chest x-ray has limited sensitivity for the detection of pulmonary masses. PLEURA: No significant pleural effusion identified. No definite pneumothorax . CARDIOVASCULAR: The cardiomediastinal silhouette appears within normal limits of size. No significant atherosclerotic calcification present. OSSEOUS STRUCTURES: No acute osseous abnormality identified. VISUALIZED UPPER ABDOMEN: Unremarkable. OTHER FINDINGS: None. IMPRESSION: No acute findings identified.
[2019-01-27 18:36] LABS: ALB/GLOB RATIO 1.5 (1.0-2.1); ALBUMIN 4.2 g/dL (3.5-5.0); ALT/SGPT 23 U/L (21-72); AST/SGOT 36 U/L (17-59); BLOOD UREA NITROGEN 10 mg/dL (9-20); CALCIUM 9.8 mg/dl (8.6-10.4); GFR NON-AFRICAN AMERICAN > 60; LIPASE 78 U/L (23-300)
[2019-01-27 18:47] LABS: CK-MB 0.57 ng/mL (0.0-3.38)
[2019-01-27 19:12] LABS: URINE BILIRUBIN NEGATIVE (NEGATIVE); URINE BLOOD NEGATIVE (NEGATIVE); URINE CLARITY Hazy (Clear); URINE COLOR Yellow (YELLOW); URINE GLUCOSE (UA) NORMAL (Normal); URINE LEUKOCYTE ESTERASE NEG Leu/uL (Negative); URINE PROTEIN 1+ mg/dL (NEGATIVE); URINE UROBILINOGEN NORMAL mg/dL (0.2-1.0)
[2019-01-27 19:23] LABS: BARBITURATES, UR NEGATIVE (NEGATIVE); BENZODIAZEPINES, UR NEGATIVE (NEGATIVE); OPIATES, UR NEGATIVE (NEGATIVE); PHENCYCLIDINE, UR NEGATIVE (NEGATIVE)
[2019-01-27 19:43] VITALS: BP 119/67; PULSE 58; RESP 19; TEMP 98.2; O2SAT 99
--- NOTE | 2019-01-28 23:27 | CARD ---
APPROVED REPORT Date of service: 01/27/2019 EKG Measurement Heart [id number] <Conclusion> Normal sinus rhythm Normal ECG
== END 2019-01-27 19:44 | disposition home or self-care (01) ==
LOC: C.ER 17:10
DX: R78.89 Finding of other specified substances, not normally found in blood (principal)
CPT/HCPCS: 71045; 80053; 80324; 80345; 80346; 80349; 80353; 80358; 80361; 81001; 82175; 82550; 82553; 83655; 83690; 83825; 83992; 84484; 85025; 85610; 85730; 93005; 96360; 99284; J7030

== ENCOUNTER 2019-02-07 17:39 | Emergency (ER) | payer OTHER ==
[2019-02-07 17:39] VITALS: BMI 26.3
[2019-02-07 17:59] VITALS: BP 131/73; PULSE 70; RESP 18; TEMP 98.6; O2SAT 99
--- NOTE | 2019-02-07 18:30 | C.PDOC ---
History Of Present Illness 33 y/o male presents to the ER for evaluation of arsenic levels. Patient states that he works in construction. Patient reports that he had routine bloodwork done at an employee health clinic in [place]. The staff told him that he had high arsenic levels so they told him to go to hospital. He went to [facility] and they orederd 24H urine test in outside laboratory. He came to [facility] ER on 01/27/19. At the time, Poison Control was contacted and they states that he needed 24 hr urine for arsenic levels. Blood work also was done and arcenic level was 4. He has returned for evaluation today. Denies having active physical complaints, but sts he believes that blood work from employee health clinic had arcenic level of 144. Time Seen by Provider: 02/07/19 18:26 Chief Complaint (Nursing): Abnormal Labs History Per: Patient History/Exam Limitations: no limitations Past Medical History Reviewed: Historical Data, Nursing Documentation, Vital Signs Vital Signs: Last Vital Signs Temp 98.6 F 02/07/19 17:57 Pulse 70 02/07/19 17:57 Resp 18 02/07/19 17:57 BP 131/73 02/07/19 17:57 Pulse Ox 99 02/07/19 17:57 - Medical History PMH: No Chronic Diseases Surgical History: No Surg Hx Family History: States: No Known Family Hx - Social History Hx Tobacco Use: No Hx Alcohol Use: Yes Hx Substance Use: Yes - Immunization History Hx Tetanus Toxoid Vaccination: No (unk) Hx Influenza Vaccination: No Hx Pneumococcal Vaccination: No (unk) Review Of Systems Except As Marked, All Systems Reviewed And Found Negative. Constitutional: Negative for: Fever, Chills Physical Exam - Physical Exam Appears: Non-toxic, No Acute Distress Skin: Normal Color, Warm, Dry Head: Atraumatic, Normacephalic Eye(s): bilateral: Normal Inspection Nose: Normal Oral Mucosa: Moist Neck: Supple Chest: Symmetrical Neurological/Psych: Oriented x3, Normal Speech ED Course And Treatment O2 Sat by Pulse Oximetry: 99 (RA) Pulse Ox Interpretation: Normal Progress Note: Patient has been discharged and instructed to follow up in [facility] and have 24 hr urine sample. Disposition - Disposition Disposition: HOME/ ROUTINE Disposition Time: 18:29 Condition: STABLE Additional Instructions: Follow up with your Employee clinic within 2-3 days. Please complete your 24 H urine test as previously instructed. Return to ED if feel worse. Instructions: 24-Hour Urine Collection Forms: [employer] (Pakistani) - Clinical Impression Clinical Impression: Abnormal laboratory test result - PA / COMMODITIES CLERK / Resident Statement MD/DO has reviewed & agrees with the documentation as recorded. - Scribe Statement The provider has reviewed the documentation as recorded by the Shadiibe Gianni Farmer Provider Attestation All medical record entries made by the Shadiibcliff were at my direction and personally dictated by me. I have reviewed the chart and agree that the record accurately reflects my personal performance of the history, physical exam, medical decision making, and the department course for this patient. I have also personally directed, reviewed, and agree with the discharge instructions and disposition.
== END 2019-02-07 18:36 | disposition home or self-care (01) ==
LOC: C.ER 17:39
DX: R89.9 Unspecified abnormal finding in specimens from other organs, systems and tissues (principal)